=== PATIENT | female | born 1990 | race Caucasian/White ===

== ENCOUNTER 2018-07-18 19:14 | Emergency (ER) | payer OTHER ==
[~2018-07-18] VITALS: Ht 160 cm; Wt 60.8 kg
--- NOTE | 2018-07-18 19:35 | NUR ---
To room 2B. Patient AAO; NAD noted.
--- NOTE | 2018-07-18 21:00 | NUR ---
Seen and evaluated by Dr. Tejada.
--- NOTE | 2018-07-18 21:50 | NUR ---
Ambulated to the BR; urine specimen obtained and sent to lab.
[2018-07-18 22:01] LABS: *BILIRUBIN,URIN NEGATIVE (NEGATIVE); *BLOOD, URINE NEGATIVE (NEGATIVE); *CLARITY,URINE CLEAR (CLEAR); *COLOR,URINE YELLOW (YELLOW); *KETONES,URINE 2+ (NEGATIVE); *UROBILINOGEN,URINE 0.2 E.U./dl (NORMAL); LEUKOCYTE ESTERASE ,URINE NEGATIVE (NEGATIVE); NITRITE, URINE NEGATIVE (NEGATIVE); PH,URINE 8.5 (5.0-8.0); UGLUCOSE NEGATIVE (NEGATIVE)
[2018-07-18 22:03] LABS: *URINE HCG, QUAL NEGATIVE (NEGATIVE)
[2018-07-18 22:12] LABS: RBC,URINE 0-3 /HPF (0-3); SQUAMOUS EPITHELIAL CELL,UR FEW /HPF (NONE SEEN); WBC,URINE 0-3 /HPF (0-3)
--- NOTE | 2018-07-18 23:00 | NUR ---
Awaiting for Xray results.
--- NOTE | 2018-07-18 23:55 | NUR ---
Patient discharged to home in stable conditon. Written and verbal after care instructions given. Patient verbalizes understanding of instructions.
[2018-07-19 00:05] VITALS: BP 111/72
== END 2018-07-18 23:55 | disposition home or self-care (01) ==
LOC: ER 19:14
DX: M54.5 Low back pain (principal); R51 Headache; R68.83 Chills (without fever)
CPT/HCPCS: 72100; 84703; A4663